=== PATIENT | female | born 2000 | race Two or more races ===

== ENCOUNTER 2020-09-10 15:55 | Observation (INO) | payer MEDICAID ==
[2020-09-10] MEDS ORDERED: PREN-145 OR (17:32)
== END 2020-09-10 17:46 | disposition home or self-care (01) ==
LOC: LDRP 15:55
PROVIDERS: ADMIT Obstetrics & Gynecology; ATTEND Obstetrics & Gynecology
DX: O62.9 Abnormality of forces of labor, unspecified (principal); O12.03 Gestational edema, third trimester; Z79.899 Other long term (current) drug therapy; Z3A.37 37 weeks gestation of pregnancy
CPT/HCPCS: 59025; 76815; 81002; G0378

== ENCOUNTER 2020-09-28 23:00 | Observation (INO) | payer MEDICAID ==
[~2020-09-28] VITALS: Ht 162.6 cm; Wt 127.0 kg
[~2020-09-28 23:00] MED LIST: PREN-145 OR
== END 2020-09-29 00:12 | disposition home or self-care (01) ==
LOC: LDRP 23:00
PROVIDERS: ADMIT Obstetrics & Gynecology; ATTEND Obstetrics & Gynecology
DX: O48.0 Post-term pregnancy (principal); O42.92 Full-term premature rupture of membranes, unspecified as to length of time between rupture and onset of labor; Z3A.40 40 weeks gestation of pregnancy
CPT/HCPCS: 59025; 76818; 81002; G0378

== ENCOUNTER 2020-09-30 15:51 | Observation (INO) | payer MEDICAID | END 2020-09-30 17:15 | disposition home or self-care (01) | LOC: LDRP 15:51 | PROVIDERS: ADMIT Obstetrics & Gynecology; ATTEND Obstetrics & Gynecology | DX: O48.0 Post-term pregnancy (principal); Z3A.40 40 weeks gestation of pregnancy | CPT/HCPCS: 59025; 76818; 81002; G0378 ==

== ENCOUNTER 2020-10-02 22:13 | Inpatient (IN) | payer MEDICAID ==
[~2020-10-02] VITALS: Ht 160 cm; Wt 81.6 kg
[2020-10-02] MEDS ORDERED: LACTATED RINGER'S 1,000 ML IV SCH (22:30)
[2020-10-02] MEDS ORDERED: PROMETHAZINE HCL 25 MG/ML 1ML IM PRN (22:30)
[2020-10-02] MEDS ORDERED: LIDOCAINE 2%HCL (LOCAL ANESTH.) INJ 20ML MDV IJ ONE (22:30)
[2020-10-02] MEDS ORDERED: PHISODERM TOP SOLN 240ML BTL TOP PRN (22:30)
[2020-10-02] MEDS ORDERED: PENICILLIN G POT 5MIL/D5 50ML 50 ML IV ONE (22:30)
[2020-10-02] MEDS ORDERED: WITCH HAZEL-GLYCERIN PAD TOP PRN (22:30)
[2020-10-02] MEDS ORDERED: BUTORPHANOL TARTRATE 2 MG/1 ML VIAL IV PRN (22:30)
[2020-10-02] MEDS ORDERED: DERMOPLAST 60ML BOTTLE TOP PRN (22:30)
[2020-10-02 23:07] LABS: Lymphocytes % (auto) 17.8 % (10.0-50.0); Monocytes % (auto) 4.8 % (0.0-12.0); Neutrophils # (auto) 8.5 10 ^3/uL (1.6-8.6); Nucleated Red Blood Cells % 0.1 %; White Blood Cell 11.4 10^3/uL (4.4-10.8)
[2020-10-02 23:09] LABS: Basophils # (auto) 0.2 10 ^3/uL (0-0.2); Basophils % (auto) 1.6 % (0.0-2.0); Eosinophils # (auto) 0.1 10 ^3/uL (0-0.8); Eosinophils % (auto) 1.3 % (0.0-7.0); Hematocrit 32.7 % (36.0-46.0); Hemoglobin 10.6 g/dL (12.2-16.2); Mean Corpuscular Hemoglobin 24.4 pg (28.0-32.0); Mean Corpuscular Hgb Conc. 32.6 g/dL (32.0-36.0); Mean Corpuscular Volume 74.9 fL (80.0-100.0); Monocytes # (auto) 0.6 10 ^3/uL (0-1.3); Neutrophils % (auto) 74.5 % (37.0-80.0); Red Blood Cells 4.36 10^6/uL (4.0-5.20); Red Cell Distribution Width 15.7 % (11.8-14.3)
[2020-10-02 23:14] LABS: Urine Bacteria FEW /hpf (None Seen); Urine Blood Negative /uL (Negative); Urine Hyaline Cast FEW /lpf (0 - 2); Urine Mucus FEW (None Seen); Urine Specific Gravity 1.013 (1.001-1.035); Urine WBC 18 /hpf (0 - 5)
[2020-10-02 23:24] LABS: INR 0.92 (0.9-1.15); Partial Thromboplastin Time 27.3 sec (23.0-31.2)
[2020-10-02 23:29] LABS: Potassium 4.3 mmol/L (3.5-5.1)
[2020-10-02 23:32] LABS: Amphetamine Screen, Urine NEGATIVE (NEGATIVE); Barbiturate Scree,Urine NEGATIVE (NEGATIVE); Benzodiazephine Screen, Urine NEGATIVE (NEGATIVE); Cannabinoid Screen, Urine NEGATIVE (NEGATIVE); Cocaine Screen, Urine NEGATIVE (NEGATIVE); Phencyclidine Screen, Urine NEGATIVE (NEGATIVE)
[2020-10-02 23:34] LABS: Albumin 2.3 g/dL (3.4-5.0); Calcium 8.6 mg/dL (8.5-10.1)
[2020-10-02 23:37] LABS: Bilirubin, Total 0.3 mg/dL (0.2-1.0); Total Protein 6.5 g/dL (6.4-8.2)
[2020-10-02 23:44] LABS: Alcohol, Urine < 3.0 mg/dL (0-10); Opiate Scree,Urine NEGATIVE (NEGATIVE)
[2020-10-03] MEDS: miSOPROStol 50 MCG per PRE-CUT 1/2 TAB PO PRN ×3 (00:31→09:08)
[2020-10-03] MEDS ORDERED: PENICILLIN G POTASSIUM 2,500,000 UNITS in D5W 5% 50 ML IV SCH (02:30)
[2020-10-03] MEDS ORDERED: STERILE WATER 10 ML ONE (05:13)
[2020-10-03] MEDS ORDERED: PENICILLIN G POT 5MILLION UNIT VIAL ONE (05:15)
[2020-10-03] MEDS: BUTORPHANOL TARTRATE 2 MG/1 ML VIAL IV PRN ×2 (09:10→12:26)
[2020-10-03] MEDS: PENICILLIN G POTASSIUM 2,500,000 UNITS in D5W 5% 50 ML IV SCH ×2 (09:11→14:12)
[2020-10-03] MEDS ORDERED: ROPIVACAINE HCL 100 ML EPI SCH (13:30)
[2020-10-03] MEDS ORDERED: NALOXONE HCL 0.4 MG/ML VIAL IV ONE ×2 (13:30→14:15)
[2020-10-03] MEDS ORDERED: fentaNYL CITRATE 100 MCG/2 ML VL IV ONE ×2 (13:30→14:15)
[2020-10-03] MEDS ORDERED: LIDOCAINE HCL 2 %PF INJ 10ML AMP IJ ONE ×3 (13:30→14:15)
[2020-10-03] MEDS ORDERED: LACTATED RINGER'S 1,000 ML IV ONE ×2 (13:30→14:15)
[2020-10-03] MEDS ORDERED: ePHEDrine SULFATE 50 MG/ML AMP IV ONE ×2 (13:30→14:15)
[2020-10-03] MEDS ORDERED: fentaNYL CITRATE 100 MCG/2 ML VL ONE (13:36)
[2020-10-03] MEDS ORDERED: ROPIVACAINE HCL 400mg/200ml BAG (2mg/ml) ONE (13:37)
[2020-10-03] MEDS ORDERED: LACT. RINGERS/OXYTOCIN 20UNITS 1,000 ML IV ONE ×2 (14:10→14:15)
[2020-10-03] MEDS ORDERED: LACT. RINGERS/OXYTOCIN 20UNITS 1,000 ML IV SCH (14:15)
[2020-10-03] MEDS ORDERED: ROPIVACAINE HCL 200 ML EPI SCH (14:15)
[2020-10-03] MEDS ORDERED: LACTATED RINGER'S 1,000 ML IV SCH (14:15)
[2020-10-03] MEDS ORDERED: METHYLERGONOVINE MALEATE 0.2 MG/ML AMP IM ONE ×2 (15:24→15:30)
[2020-10-03] MEDS ORDERED: ACETAMINOPHEN 325 MG TAB PO PRN (17:00)
[2020-10-03] MEDS: IBUPROFEN 600 MG TAB PO PRN (17:09)
[2020-10-03 19:00] VITALS: BP 106/66
[2020-10-03 23:00] VITALS: BP 101/55
[2020-10-04 03:00] VITALS: BP 96/67
[2020-10-04] MEDS: IBUPROFEN 600 MG TAB PO PRN (05:08)
[2020-10-04 06:54] VITALS: BP 114/74
[2020-10-04 07:06] LABS: RPR Non Reactive (Non Reactive)
[2020-10-04 11:11] VITALS: BP 104/57
[2020-10-04 14:16] VITALS: BP 103/58
== END 2020-10-04 18:15 | disposition home or self-care (01) | DRG 560 ==
LOC: LDRP 22:13
PROVIDERS: ADMIT Obstetrics & Gynecology; ATTEND Obstetrics & Gynecology
PROC: 10E0XZZ Delivery of Products of Conception, External Approach (ICD-10-PCS; principal; 2020-10-03)
PROC: 3E0P7VZ Introduction of Hormone into Female Reproductive, Via Natural or Artificial Opening (ICD-10-PCS; 2020-10-03)
PROC: 3E0R3BZ Introduction of Anesthetic Agent into Spinal Canal, Percutaneous Approach (ICD-10-PCS; 2020-10-03)
PROC: 00HU33Z Insertion of Infusion Device into Spinal Canal, Percutaneous Approach (ICD-10-PCS; 2020-10-03)
PROC: 0KQM0ZZ Repair Perineum Muscle, Open Approach (ICD-10-PCS; 2020-10-03)
DX: O48.0 Post-term pregnancy (principal); O69.81X0 Labor and delivery complicated by cord around neck, without compression, not applicable or unspecified; Z37.0 Single live birth; Z3A.40 40 weeks gestation of pregnancy; O70.1 Second degree perineal laceration during delivery; O71.82 Other specified trauma to perineum and vulva; Z20.822 Contact with and (suspected) exposure to COVID-19
CPT/HCPCS: 36415; 59025; 59409; 62282; 80053; 80307; 81001; 81002; 85025; 85610; 85730; 86592; 86850; 86900; 86901; 87426; 96360; 96361; 96372; G0378; J2540; J2590; J7060